=== PATIENT | female | born 2000 | race American Indian/Alaskan Native ===

== ENCOUNTER 2020-09-14 05:57 | Inpatient (IN) | payer MEDICAID ==
[2020-09-14] MEDS ORDERED: Sodium Chloride 0.9% 10 ML Syringe FLUSH PRN (06:13)
[2020-09-14] MEDS ORDERED: Ondansetron 4 MG/2 ML SDV IVPUSH PRN (06:13)
[2020-09-14] MEDS ORDERED: Nalbuphine 10 MG/1 ML Vial IVPUSH PRN (06:13)
[2020-09-14] MEDS ORDERED: Oxytocin/Lactated Ringers 10 UNIT/1,000 ML BAG IV SCH ×2 (06:15)
[2020-09-14] MEDS ORDERED: Lactated Ringers 1,000 ML IV SCH (06:15)
--- NOTE | 2020-09-14 08:11 | PCM.SN.2 ---
- Free Text/Narrative Note: Stage I - Patient presented at 8 cm in active labor. AROM clear fluid. Progressed to complete with reassuring heart tones. Stage II - of viable female, weight 3330g, 8/9 APGARS at 0708. Head delivered in controlled manner over intact perineum. Body and shoulders atraumatically. To maternal abdomen, cord clamped and cut. Pitocin initiated. Positive cry. Cord blood collected. Stage III- of intact placenta. 3vc. No laceration. EBL 300.
--- NOTE | 2020-09-14 08:15 | PCM.LDHP ---
L&D History of Present Illness - General Date of Service: 09/14/20 Admit Problem/Dx: Patient Status Order with Admit Dx/Problem 09/14/20 06:13 Patient Status [ADT] Routine Admission Diagnosis/Problem Admission Diagnosis/Problem - History of Present Illness Introduction:: 20 year old at presents in active labor. [facility] with Dr. Steele complicated by 1) Gestational diabetes - patient reports has not been checking sugars. Problem list reflects treating as such based on prior history of gestational diabetes and elevated one hour. 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 Had a titer at [place] in November 2017. 1:128. Treated then. Decreased appropriately to 1:16 in november 2018 and then 1:8 at initiation of care. - Related Data Allergies/Adverse Reactions: Allergies Allergy/AdvReac Type Severity Reaction Status Date / Time No Known Allergies Allergy Verified 09/14/20 08:13 Past Medical History Other Genitourinary History: Hx of clamidia - Infectious Disease History Infectious Disease History: Reports: Other (See Below) (syphilis) Social & Family History - Family History Family Medical History: Unobtainable H&P Review of Systems - Review of Systems: Review Of Systems: See Below General: Reports: No Symptoms HEENT: Reports: No Symptoms Pulmonary: Reports: No Symptoms Cardiovascular: Reports: No Symptoms Gastrointestinal: Reports: No Symptoms Genitourinary: Reports: No Symptoms Musculoskeletal: Reports: No Symptoms Skin: Reports: No Symptoms Psychiatric: Reports: No Symptoms Neurological: Reports: No Symptoms Hematologic/Lymphatic: Reports: No Symptoms Immunologic: Reports: No Symptoms L&D Exam - Exam Exam: See Below - Vital Signs Vital Signs: Last Vital Signs Temp 36.8 C 09/14/20 06:13 Pulse 86 09/14/20 06:13 Resp 16 09/14/20 06:13 BP 149/89 H 09/14/20 06:13 Pulse Ox 98 09/14/20 06:13 - OB Specific Contraction Intensity: Mild to Moderate Movement: Active Heart Tones: Present Heart Rate (FHR) Variability: Moderate (6-25 bmp) Presentation: Vertex - Amaro Score Amaro Score Cervix Position: Anterior Amaro Score Effacement: >80% Amaro Score Dilation: > 5 cm - Exam General: Alert, Oriented HEENT: PERRLA, Conjunctiva Clear, EACs Clear, EOMI, Hearing Intact, Mucosa Moist & [place], Nares Patent, Normal Nasal Septum, Posterior Pharynx Clear, TMs Clear Neck: Supple, Trachea Midline Lungs: Clear to Auscultation, Normal Respiratory Effort Cardiovascular: Regular Rate, Regular Rhythm GI/Abdominal Exam: Normal Bowel Sounds, Soft, Non-Tender, No Organomegaly, No Distention, No Abnormal Bruit Genitourinary: Normal external exam, Normal bimanual exam, Normal speculum exam Extremities: Normal Inspection, Normal Range of Motion, Non-Tender, No Pedal Edema, Normal Capillary Refill Skin: Warm, Dry Neurological: Cranial Nerves Intact, Reflexes Equal Bilateral Psychiatric: Alert, Normal Affect, Normal Mood - Patient Data Lab Results Last 24 hrs: Laboratory Results - last 24 hr 09/14/20 09/14/20 Range/Units 06:20 06:26 WBC 10.64 H (3.98-10.04) K/mm3 RBC 4.49 (3.98-5.22) M/mm3 Hgb 10.3 L (11.2-15.7) gm/dl Hct 33.4 L (34.1-44.9) % MCV 74.4 L (79.4-94.8) fl MCH 22.9 L (25.6-32.2) pg MCHC 30.8 L (32.2-35.5) g/dl RDW Std Deviation 43.7 (36.4-46.3) fL Plt Count 263 (182-369) K/mm3 MPV 11.5 (9.4-12.3) fl Neut % (Auto) 61.2 (34.0-71.1) % Lymph % (Auto) 30.8 (19.3-51.7) % [place] % (Auto) 5.8 (4.7-12.5) % Eos % (Auto) 1.7 (0.7-5.8) Baso % (Auto) 0.1 (0.1-1.2) % Neut # (Auto) 6.51 H (1.56-6.13) K/mm3 Lymph # (Auto) 3.28 (1.18-3.74) K/mm3 [place] # (Auto) 0.62 H (0.24-0.36) K/mm3 Eos # (Auto) 0.18 (0.04-0.36) K/mm3 Baso # (Auto) 0.01 (0.01-0.08) K/mm3 Manual Slide Review Abnormal smear SARS-CoV-2 RNA (OMEGA) Negative (NEGATIVE) Result Diagrams: 09/14/20 06:26 Problem List Initiated/Reviewed/Updated: Yes Orders Last 24hrs: Active Orders 24 hr Category Date Time Status Patient Status Manage Transfer [TRANSFER] Routine ADT 09/14/20 08:04 Active Patient Status [ADT] Routine ADT 09/14/20 06:13 Active Activity as Tolerated [RC] PFP Care 09/14/20 06:13 Active Communication Order [RC] ASDIRECTED Care 09/14/20 06:13 Active Heart Tones [RC] ASDIRECTED Care 09/14/20 06:14 Active Non Stress Test [RC] PER UNIT ROUTINE Care 09/14/20 06:13 Active Notify Provider [RC] PFP Care 09/14/20 06:13 Active Notify Provider [RC] PRN Care 09/14/20 06:13 Active Peripheral IV Care [RC] . DIRECTED Care 09/14/20 06:14 Active Pump Management, Intrathecal [RC] ASDIRECTED Care 09/14/20 06:15 Active Vital Signs [RC] PER UNIT ROUTINE Care 09/14/20 06:13 Active Regular Diet [DIET] Diet 09/14/20 Breakfast Active DRUG SCREEN, URINE [URCHEM] Stat Lab 09/14/20 08:10 Ordered HEP C VIRUS AB [REF] Stat Lab 09/14/20 06:26 Received RAPID PLASMA REAGIN,RPR [CHEM] Routine Lab 09/14/20 06:26 Received UA W/MICROSCOPIC [URIN] Routine Lab 09/14/20 08:10 Ordered Lactated Ringers [Ringers, Lactated] 1,000 ml Med 09/14/20 06:15 Active IV ASDIRECTED Nalbuphine [Nubain] Med 09/14/20 06:13 Active 10 mg IVPUSH Q2H PRN Ondansetron [Zofran] Med 09/14/20 06:13 Active 4 mg IVPUSH Q4H PRN Oxytocin/Lactated Ringers [Pitocin in LR 10 Units/1,000 Med 09/14/20 06:15 Active ML] 10 unit in 1,000 ml IV .CONTINUOUS Oxytocin/Lactated Ringers [Pitocin in LR 10 Units/1,000 Med 09/14/20 06:15 Active ML] 10 unit in 1,000 ml IV TITRATE Sodium Chloride 0.9% [Saline Flush] Med 09/14/20 06:13 Active 10 ml FLUSH ASDIRECTED PRN Electronic Heart Tones Ext w TOCO [WOMSER] Oth 09/14/20 06:13 Ordered Routine Electronic Heart Tones Internal [WOMSER] Per Unit Oth 09/14/20 06:13 Ordered Routine Peripheral IV Insertion Adult [OM.PC] Routine Oth 09/14/20 06:13 Ordered Resuscitation Status Routine Resus Stat 09/14/20 06:13 Ordered Medication Orders Oxytocin/Lactated Ringer's (Pitocin In Lr 10 Units/1,000 Ml) 10 unit in 1,000 mls @ 12 mls/hr IV TITRATE GURWINDER; Protocol Oxytocin/Lactated Ringer's (Pitocin In Lr 10 Units/1,000 Ml) 10 unit in 1,000 mls @ 500 mls/hr IV .CONTINUOUS GURWINDER Last Admin: 09/14/20 07:10 Dose: 500 mls/hr Documented by: MELODY Lactated Ringer's (Ringers, Lactated) 1,000 mls @ 100 mls/hr IV ASDIRECTED GURWINDER Nalbuphine HCl (Nalbuphine 10 Mg/1 Ml Vial) 10 mg IVPUSH Q2H PRN PRN Reason: Pain Ondansetron HCl (Ondansetron 4 Mg/2 Ml Sdv) 4 mg IVPUSH Q4H PRN PRN Reason: Nausea/Vomiting Sodium Chloride (Sodium Chloride 0.9% 10 Ml Syringe) 10 ml FLUSH ASDIRECTED PRN PRN Reason: Keep Vein Open Assessment/Plan Comment:: 20 year old here in active labor. Had rapid . CBC, RPR, Covid done. - RPR pending - conversation with state demonstrates she did not need further treatment as was adequately treated in 2018. Gestational diabetes - finger stick pre delivery Anticipate .
[2020-09-14] MEDS ORDERED: Benzocaine/Menthol 20%-0.5% Spray 56 GM Canister TOP PRN (08:40)
[2020-09-14] MEDS ORDERED: Witch Hazel Medicated Pads 40/Jar TOP PRN (08:40)
[2020-09-14] MEDS ORDERED: Acetaminophen 325 MG Tab PO PRN (08:40)
[2020-09-14] MEDS: Ibuprofen 600 MG Tab PO PRN ×2 (09:41→18:51)
[2020-09-15] MEDS: Ibuprofen 600 MG Tab PO PRN ×3 (03:25→21:34)
--- NOTE | 2020-09-15 09:12 | PCM.SN.2 ---
- Free Text/Narrative Note: note: Patient is doing well in the period. Minimal lochia, voiding well, ambulated without problems. Nursing without concerns. Patient is concerned about the baby's right arm. Apparently there is some swelling at and due to blood draw has a small hematoma upper right arm. Evaluation by pediatrics is pending. Patient is afebrile, vital signs are stable Abdomen is flat, soft, uterus is below the umbilicus and is firm and nontender. Legs are nontender. Assessment: recovery going well. Plan: Routine care. Patient be discharged home within the next 24 hours.
[2020-09-15] MEDS: Cephalexin 250 MG Cap PO SCH ×2 (15:37→21:35)
--- NOTE | 2020-09-16 07:30 | PCM.DCSUM1 ---
Discharge Summary - Hospital Course Free Text/Narrative:: 20 year old 5 now para 4-0-1-4 who presented in active labor on the a.m. of 09/14/2020. She rapidly went on to deliver within the first couple hours after admission. [facility] with Dr. Steele complicated by: 1) Gestational diabetes - patient reports has not been checking sugars. Problem list reflects treating as such based on prior history of gestational diabetes and elevated one hour. 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 Had a titer at [place] in November 2017. 1:128. Treated then. Decreased appropriately to 1:16 in november 2018 and then 1:8 at initiation of care. Patient is actually been treated 3 times for this since 2017. Stage I - Patient presented at 8 cm in active labor. AROM clear fluid. Progressed to complete with reassuring heart tones. Stage II - of viable female, weight 3330g, 8/9 APGARS at 0708. Head delivered in controlled manner over intact perineum. Body and shoulders atraumatically. To maternal abdomen, cord clamped and cut. Pitocin initiated. Positive cry. Cord blood collected. Stage III- of intact placenta. 3vc. No laceration. EBL 300. patient is bottlefeeding. She has had normal recovery with the exception of a carbuncle which occurred in the right mons pubis area. This is draining. It was cultured with results pending. She is started on Keflex 250 mg p.o. 3 times daily and will be continued on this for 7 days after discharge home. She is ambulating well, has minimal lochia and is voiding without concerns. She is desiring discharge home. Diagnosis: Stroke: No - Discharge Data Discharge Date: 09/16/20 Discharge Disposition: Home, Self-Care 01 Condition: Good - Referral to Home Health Primary Care Physician: Colt Steele MD - Patient Summary/Data Consults: Consultations 09/14/20 12:33 Consult to Case Management/Justice [employer] Deputy Clerk [CONS] Routine - Patient Instructions Diet: Regular Diet as Tolerated Activity: As Tolerated (No intercourse or tampons until bleeding resolves) Driving: May Drive Today, Do Not Drive Showering/Bathing: May Shower (May take a bath) Notify Provider of: Fever, Increased Pain, Swelling and Redness, Nausea and/or Vomiting - Discharge Plan Prescriptions/Med Rec: cephALEXin [Keflex] 250 mg PO TID #21 cap Home Medications: Home Meds Acetaminophen [Tylenol] 650 mg PO Q4H PRN tablet 09/16/20 [Rx] Ibuprofen [Motrin] 600 mg PO Q6H PRN tablet 09/16/20 [Rx] cephALEXin [Keflex] 250 mg PO TID #21 cap 09/16/20 [Rx] Referrals: Colt Steele MD [Primary Care Provider] - (Return to clinicDr. Steele[facility] weeks.) - Discharge Summary/Plan Comment DC Time >30 min.: No Discharge Summary/Plan Comment: Discharge instructions: 1. Discharge home 2. Diet, activity and follow-up discussed with patient. Recommend nursing diet with increased calories and calcium. 3. Precautions given concern increased pain, bleeding, temperature, signs/symptoms of DVT/PE. 4. Medications per home medication was printed, discussed with and given to the patient. 5. Return to clinic-Dr. Steele-[facility] in 2 weeks. Diagnosis: 1. Term -delivered 2. Carbuncleright mons pubis areatreated with antibiotics Condition: Good - Patient Data Vitals - Most Recent: Last Vital Signs Temp 36.6 C 09/16/20 02:36 Pulse 92 09/16/20 02:36 Resp 14 09/16/20 02:36 BP 111/53 L 09/16/20 02:36 Pulse Ox 97 09/16/20 02:36 Weight - Most Recent: 96.615 kg Lab Results - Last 24 hrs: Laboratory Results - last 24 hr 09/15/20 Range/Units 07:23 POC Glucose 89 (70-99) mg/dL Med Orders - Current: Current Medications Acetaminophen (Acetaminophen 325 Mg Tab) 650 mg PO Q4H PRN PRN Reason: mild pain or fever Benzocaine/Menthol (Benzocaine/Menthol 20%-0.5% [place] 56 Gm Canister) 0 gm TOP ASDIRECTED PRN PRN Reason: Perineal Comfort Measure Cephalexin (Cephalexin 250 Mg Cap) 250 mg PO TID GURWINDER Last Admin: 09/15/20 21:35 Dose: 250 mg Documented by: Ibuprofen (Ibuprofen 600 Mg Tab) 600 mg PO Q6H PRN PRN Reason: Mild pain or fever Last Admin: 09/15/20 21:34 Dose: 600 mg Documented by: Camelia Mayorga (Camelia Mayorga Medicated Pads 40/Jar) 1 pad TOP ASDIRECTED PRN PRN Reason: Perineal Comfort Measure Discontinued Medications Oxytocin/Lactated Ringer's (Pitocin In Lr 10 Units/1,000 Ml) 10 unit in 1,000 mls @ 12 mls/hr IV TITRATE GURWINDER; Protocol Oxytocin/Lactated Ringer's (Pitocin In Lr 10 Units/1,000 Ml) 10 unit in 1,000 mls @ 500 mls/hr IV .CONTINUOUS GURWINDER Last Admin: 09/14/20 07:10 Dose: 500 mls/hr Documented by: Lactated Ringer's (Ringers, Lactated) 1,000 mls @ 100 mls/hr IV ASDIRECTED GURWINDER Nalbuphine HCl (Nalbuphine 10 Mg/1 Ml Vial) 10 mg IVPUSH Q2H PRN PRN Reason: Pain Ondansetron HCl (Ondansetron 4 Mg/2 Ml Sdv) 4 mg IVPUSH Q4H PRN PRN Reason: Nausea/Vomiting Sodium Chloride (Sodium Chloride 0.9% 10 Ml Syringe) 10 ml FLUSH ASDIRECTED PRN PRN Reason: Keep Vein Open
[2020-09-16 08:23] VITALS: BP 97/63; PULSE 80
[2020-09-16] MEDS: Ibuprofen 600 MG Tab PO PRN (11:00)
[2020-09-16] MEDS: Cephalexin 250 MG Cap PO SCH (11:00)
== END 2020-09-16 11:05 | disposition home or self-care (01) | DRG 807 ==
LOC: JD.OBCHECK 05:57 → JD.OB 06:00 → JD.OBCHECK 06:13 → MERGE 07:08 → OBSVTOIN 07:08 → JD.OB 07:09
PROVIDERS: ADMIT Obstetrics & Gynecology; ATTEND Obstetrics & Gynecology
PROC: 10E0XZZ Delivery of Products of Conception, External Approach (ICD-10-PCS; principal; 2020-09-14)
PROC: 10907ZC Drainage of Amniotic Fluid, Therapeutic from Products of Conception, Via Natural or Artificial Opening (ICD-10-PCS; 2020-09-14)
DX: O24.420 Gestational diabetes mellitus in childbirth, diet controlled (principal); Z37.0 Single live birth; Z3A.39 39 weeks gestation of pregnancy; Z20.822 Contact with and (suspected) exposure to COVID-19
CPT/HCPCS: 36415; 59025; 59409; 80306; 81001; 82947; 85025; 86592; 86780; 86803; 87070; 87077; 87186; A9270-GY; J2590; U0002

== ENCOUNTER 2021-07-18 23:43 | Emergency (ER) | payer MEDICAID ==
[2021-07-18 23:50] VITALS: BP 132/86; PULSE 80
[2021-07-19] MEDS ORDERED: Ibuprofen 600 MG Tab PO ONE (00:03)
== END 2021-07-19 01:30 | disposition home or self-care (01) ==
LOC: JD.ED 23:43
DX: S01.01XA Laceration without foreign body of scalp, initial encounter (principal); S50.811A Abrasion of right forearm, initial encounter; E66.9 Obesity, unspecified; Z68.31 Body mass index [BMI] 31.0-31.9, adult; Z72.0 Tobacco use; Y04.2XXA Assault by strike against or bumped into by another person, initial encounter
CPT/HCPCS: 99284; A9270; 99283